=== PATIENT | female | born 1990 | race Caucasian/White ===

== ENCOUNTER 2022-01-22 09:57 | Outpatient (CLI) | payer OTHER ==
[2022-01-22 23:49] LABS: SARS-CoV-2 PCR by NAA Not Detected (NotDetected)
== END 2022-01-22 09:58 | disposition home or self-care (01) ==
LOC: LABBT 09:57
PROVIDERS: ATTEND Dentist Oral and Maxillofacial Surgery
DX: Z20.822 Contact with and (suspected) exposure to COVID-19 (principal)
CPT/HCPCS: U0003; U0005

== ENCOUNTER 2022-01-27 08:31 | Day surgery (SDC) | payer OTHER ==
[2022-01-25 13:07] VITALS: BMI 25.6
[2022-01-27] MEDS ORDERED: fentaNYL Citrate/PF 100 MCG/2 ML SYRINGE ONE (10:04)
[2022-01-27] MEDS ORDERED: Lidocaine 1% w/Epinephrine 1:100K 20 ML VIAL ONE (10:07)
[2022-01-27] MEDS ORDERED: Chlorhexidine Gluconate 15 ML UDCUP SSP ONE (10:07)
[2022-01-27] MEDS ORDERED: EPINEPHrine 1 MG/ML AMP ONE (10:07)
[2022-01-27] MEDS ORDERED: Bupivacaine 0.25% 10 ML VIAL ONE ×2 (10:07→10:08)
[2022-01-27] MEDS ORDERED: AFRIN NASAL MIST 15 ML BOT ONE (10:18)
== END 2022-01-27 10:47 | disposition home or self-care (01) ==
LOC: SDC 08:31
PROVIDERS: ATTEND Dentist Oral and Maxillofacial Surgery
DX: K01.1 Impacted teeth (principal); Z53.8 Procedure and treatment not carried out for other reasons; Z79.01 Long term (current) use of anticoagulants; Z79.52 Long term (current) use of systemic steroids; Z79.899 Other long term (current) drug therapy; Z88.8 Allergy status to other drugs, medicaments and biological substances
CPT/HCPCS: J0171; S0020